=== PATIENT | female | born 1995 | race Caucasian/White ===

== ENCOUNTER 2019-01-19 13:45 | Outpatient (CLI) | payer BC ==
--- NOTE | 2019-01-19 14:06 | RAD ---
XR Chest Pa Lat STANDARD History: Inflammatory arthropathy Comparison: None. Findings: Lungs are clear. No pneumothorax or effusion. Cardiac silhouette and mediastinal contours a re within normal limits. Impression: No acute intrathoracic abnormality.
== END 2019-01-19 13:46 | disposition home or self-care (01) ==
LOC: BICRAD 13:45
PROVIDERS: ATTEND Internal Medicine Rheumatology
DX: M06.4 Inflammatory polyarthropathy (principal)
CPT/HCPCS: 71046